=== PATIENT | male | born 1960 | race Caucasian/White ===

== ENCOUNTER → 2023-09-11 10:52 | Outpatient (REF) | payer BC, SELFPAY | LOC: HWRAD 10:52 | PROVIDERS: ATTENDING PHYSICIAN Physician Assistant | DX: Z87.891 Personal history of nicotine dependence (principal) | CPT/HCPCS: 71271 ==

== ENCOUNTER → 2024-03-14 15:28 | Outpatient (REF) | payer BC, SELFPAY | LOC: HWRAD 15:28 | PROVIDERS: ATTENDING PHYSICIAN Internal Medicine Critical Care Medicine; FAMILY PHYSICIAN Family Medicine | DX: R91.1 Solitary pulmonary nodule (principal) | CPT/HCPCS: 71250 ==

== ENCOUNTER 2024-06-13 06:10 | Day surgery (SDC) | payer MEDICARE, OTHER, SELFPAY ==
[2024-06-01 11:18] LABS: Hematocrit 44.4 % (39.0-52.0); Hemoglobin 14.4 g/dL (13.0-18.0); Mean Corp Hgb Conc. 32.4 g/dL (33.0-37.0); Mean Corpuscular Hgb 30.5 pg (27.0-31.0); Mean Corpuscular Volume 94.1 fL (80.0-94.0); Mean Platelet Volume 10.2 fL (7.4-10.4); Platelet Count 264 10^3/uL (130-400); Red Blood Cell Count 4.72 10^6/uL (4.70-6.10); White Blood Cell Count 13.3 10^3/uL (4.8-10.8)
[2024-06-01 11:59] LABS: Blood Urea Nitrogen 15 mg/dl (9-20); Calcium 9.6 mg/dl (8.4-10.2); Carbon Dioxide 25 mmol/L (22-30); Chloride 102 mmol/L (98-107); Glucose 95 mg/dl (70-99); Sodium 137 mmol/L (135-145); eGFR > 60.00
[2024-06-01 14:10] VITALS: BMI 22.9
--- NOTE | 2024-06-09 15:24 | PTCARENOTE ---
Abn ECG, Dr. Sampson notified, no additional interventions requested.
[2024-06-13] VITALS (9 sets, daily range): BP systolic 124–155; BP diastolic 74–94; BMI 22.9
[2024-06-13] MEDS: TYLENOL 1000 MG PO (06:55)
[2024-06-13] MEDS: NORMOSOL-R/PLASMALYTE-A 1000 IV (06:55)
--- NOTE | 2024-06-13 07:09 | HP.FOC2 ---
Focused History & Physical
Chief Complaint
HPI:
Chief Complaint: Bilateral inguinal hernias, ventral hernia
HPI / Indication for Planned Procedure: 64-year-old male with a longstanding history of bilateral inguinal hernias he has been following expectantly. Awareness of the hernias being present. Always visible swelling upon standing or with activity.
The inguinal hernia sac particularly becomes bothersome over the past couple years. Recently underwent attempted colonoscopy but was unable to complete due to sigmoid colon within the left inguinal hernia. Past medical history mainly related to
severe COPD. Presenting for scheduled correction.
Relevant Past Medical History: Other (COPD, hypertension, colon polyps)
Relevant Social History: Negative
Relevant Family History: Negative
Relevant Past Surgical History: Positive for (ACL, MCL, meniscus tear)
Review of Systems
Review of Pertinent Systems: All Systems Negative
Medication
See Medication form for detailed medications: Yes
Medication List (including Herbals & OTC):
albuterol sulfate 90 mcg/actuation aerosol inhaler 2 puff inhalation Q6H PRN SOB 06/06/24
ascorbic acid (vitamin C) 500 mg tablet (Vitamin C) 500 mg PO DAILY 06/06/24
cholecalciferol (vitamin D3) 25 mcg (1,000 unit) tablet (Vitamin D3) 25 mcg PO DAILY 06/06/24
fluticasone fur. 200 mcg-umeclid 62.5 mcg-vilant 25 mcg inhalat.powder (Trelegy Ellipta) 1 inh inhalation DAILY 06/06/24
lisinopril 5 mg tablet 5 mg PO HS 06/06/24
eylzcrkltyym-zaz-ntokw acid-vit K-lycop 400 mcg-20 mcg-370 mcg tablet (Men's 50 Plus Daily Formula) 1 tab PO DAILY 06/06/24
omega 1-fws-mso-fish oil 1,200 mg (144 mg-216 mg) capsule (Fish Oil) 1 cap PO DAILY 06/06/24
vitamin B complex 1 tab PO DAILY 06/06/24
Medications Reviewed: Yes
Allergies and Reactions
Patient has Allergies: No
Noted Allergies and Reactions:
Allergy/AdvReac Type Severity Reaction Status Date / Time
No Known Allergies Allergy Verified 06/13/24 06:36
Pertinent Physical Exam
All Other Systems: Negative
Head/Neck: Normal
Lungs: Normal
Heart: Normal
Abdomen: Other (Bilateral inguinal hernias, supraumbilical ventral hernia)
Extremities: Normal
Neurological: Normal
Diagnosis / Assessment
64-year-old male presenting for scheduled operative correction of bilateral inguinal hernias and supraumbilical ventral hernia
Plan / Procedure
Robotic assisted laparoscopic repair bilateral inguinal hernias with mesh, open ventral hernia repair possible mesh
Anesthesia/Sedation to be done by Anesthesia Provider: Yes
--- NOTE | 2024-06-13 07:12 | W.SUR.PREOP ---
Pre-Operative Surgical Note
-
I have examined this patient prior to the performance of the scheduled procedure.
The patient's condition is unchanged from the time of the current History and
Physical and the patient is able to undergo the scheduled procedure.
[2024-06-13] MEDS: EMEND 40 MG PO (07:15)
--- NOTE | 2024-06-13 10:16 | W.IMMPOSTOP ---
Surgical Immed Post Op Note
-
Primary Surgeon: Aram Mustafa MD
Assisting Surgeon: Wilfrido Baron MD PGY1; Demetris RAPP
Pre-op Diagnosis: Bilateral inguinal hernias; ventral hernia
Post-op Diagnosis: Bilateral inguinal hernias, ventral hernia
BPH with probable urinary retention
Procedure Performed: Robotic assisted laparoscopic repair bilateral inguinal hernias with mesh
Open primary ventral hernia repair
Anesthesia Type: GETA +0.25% lidocaine
Specimen / Cultures: None
Estimated Blood Loss: 10 mL
Complications: None immediate
Operative Findings: Inspection of the pelvis at onset of procedure identified boggy/distended bladder despite patient voiding on-call to the OR. Atkinson catheter placed, initially resistance with regular Atkinson; Uro-Jet utilized and 14 Nepali coud�
Atkinson catheter which was able to be passed into the bladder for decompression with little resistance.
Bilateral direct inguinal hernias. Indirect and femoral spaces normal. No lipomas of spermatic cord. 3D max large mid weight mesh repair x 2 secured to Avery's ligament with 2-0 Vicryl suture. Plication of direct pseudosac with 2-0 PDS
STRATAFIX bilaterally.
Primary ventral hernia about 8 mm -utilized as robotic trocar site for camera. Closed primarily at conclusion of procedure with 0 PDS suture. No additional ventral or umbilical hernia noted.
Plan: Maintain Atkinson catheter 72 hours postop due to elevated risk for postoperative urinary retention
Prescription for Flomax sent to pharmacy with postoperative narcotic
Updated patient's postoperatively in the waiting area.
[2024-06-13] MEDS: FLOMAX 0.4 MG PO (11:24)
== END 2024-06-13 12:19 | disposition home or self-care (01) ==
LOC: SDS 06:10
PROVIDERS: ATTENDING PHYSICIAN Surgery; FAMILY PHYSICIAN Family Medicine
PROC: 0YUA4JZ Supplement Bilateral Inguinal Region with Synthetic Substitute, Percutaneous Endoscopic Approach (ICD-10-PCS; 2024-06-13)
PROC: 8E0W4CZ Robotic Assisted Procedure of Trunk Region, Percutaneous Endoscopic Approach (ICD-10-PCS; 2024-06-13)
PROC: 0WQF0ZZ Repair Abdominal Wall, Open Approach (ICD-10-PCS; 2024-06-13)
DX: K40.20 Bilateral inguinal hernia, without obstruction or gangrene, not specified as recurrent (principal); K43.9 Ventral hernia without obstruction or gangrene; N40.0 Benign prostatic hyperplasia without lower urinary tract symptoms
CPT/HCPCS: 49650; 49591; 36415; 80048; 85027; 93005; C1781

== ENCOUNTER → 2025-03-22 10:56 | Outpatient (REF) | payer MEDICARE, OTHER, SELFPAY | LOC: HWRAD 10:56 | PROVIDERS: ATTENDING PHYSICIAN Internal Medicine Critical Care Medicine; FAMILY PHYSICIAN Family Medicine | DX: Z87.891 Personal history of nicotine dependence (principal) | CPT/HCPCS: 71271 ==